=== PATIENT | female | born 1960 | race Hispanic/Latino ===

== ENCOUNTER 2018-08-09 19:13 | Emergency (ER) | payer MEDICARE, OTHER ==
[2018-08-09] MEDS ORDERED: Albuterol-Ipratrop 3 mg / 0.5 (3 ml) UD ONE ×3 (19:34→19:52)
--- NOTE | 2018-08-09 19:53 | C.PDOC ---
History Of Present Illness 57 year old female, whose PMHx includes COPD, presents to the ED for evaluation of shortness of breath which has been worsening over the past week. Patient also reports cough that is productive of yellow/green sputum. Patient notes she has been very stressed due to family problems and has been smoking more than usual. She denies fever, chills, nausea, vomiting. Time Seen by Provider: 08/09/18 19:38 Chief Complaint (Nursing): Shortness Of Breath History Per: Patient History/Exam Limitations: no limitations Onset/Duration Of Symptoms: Days Current Symptoms Are (Timing): Still Present Current Respiratory Medications: See Home Med List Associated Symptoms: Productive Cough Additional History Per: Patient Past Medical History Reviewed: Historical Data, Nursing Documentation, Vital Signs Vital Signs: Last Vital Signs Temp 99.1 F 08/09/18 19:33 Pulse 102 H 08/09/18 19:33 Resp 24 08/09/18 19:33 BP 124/81 08/09/18 19:33 Pulse Ox 97 08/09/18 19:33 - Medical History PMH: Arthritis, Asthma, COPD, HTN, Hypothyroidism Surgical History: No Surg Hx Family History: States: Unknown Family Hx - Social History Hx Alcohol Use: No Hx Substance Use: No - Immunization History Hx Tetanus Toxoid Vaccination: No Hx Influenza Vaccination: No Review Of Systems Constitutional: Negative for: Fever, Chills Respiratory: Positive for: Cough, Shortness of Breath, Sputum (yellow/green ) Gastrointestinal: Negative for: Nausea, Vomiting Physical Exam - Physical Exam Appears: Non-toxic, No Acute Distress, Other (anxious, argumentative ) Skin: Normal Color, Warm, Dry Head: Atraumatic, Normacephalic Eye(s): bilateral: Normal Inspection Oral Mucosa: Moist Neck: Supple Chest: Symmetrical, No Deformity, No Tenderness Cardiovascular: Rhythm Regular, No Murmur Respiratory: Wheezing (expiratory ), Other (bronchial congestion, retractions noted ) Extremity: Normal ROM, Capillary Refill (less than 2 seconds ) Neurological/Psych: Oriented x3, Normal Speech, Normal Cognition ED Course And Treatment O2 Sat by Pulse Oximetry: 97 (on RA) Pulse Ox Interpretation: Normal Progress - Re-Evaluation Re-evaluation Note: 08/09/18 22:18 FEELS BETTER NARD VSS - Data Reviewed Data Reviewed: Lab, Diagnostic imaging, Old records - Critical Care Citical Care: Excluding Proc Time Critical Care Time: 90 minutes Medical Decision Making Medical Decision Making: CXR ordered and reviewed. Duoneb INH, Xanax PO, Zithromax PO, and Prednisone PO given. Patient is argumentative and refuses to listen to recommended course of treatment. Patient refuses to focus on every problem but her trouble with breathing. Patient refuses IV access. Patient voices understanding of the possibility that her symptoms may worsen because of her choice to refuse IV access. Disposition Counseled Patient/Family Regarding: Studies Performed, Diagnosis, Need For Followup, Rx Given - Disposition Referrals: Sedrick Soni MD [Primary Care Provider] - Disposition: HOME/ ROUTINE Disposition Time: 22:19 Condition: IMPROVED Additional Instructions: YOU HAVE BEEN OFFERED BLOOD TESTING AND IV MEDICATION FOR YOUR CONDITION BUT HAVE REPEATEDLY REFUSED. FOLLOW UP WITH YOUR PMD Prescriptions: Azithromycin 1 tab PO DAILY #4 tab predniSONE [Prednisone] 60 mg PO DAILY #12 tab Instructions: Exacerbation of COPD (DC), Acute Bronchitis, Adult (DC) Forms: [employer] ([place]) - Clinical Impression Clinical Impression: COPD exacerbation, Bronchitis - Scribe Statement The provider has reviewed the documentation as recorded by the Scribe (Bren Soni) Provider Attestation: All medical record entries made by the Scribe were at my direction and personally dictated by me. I have reviewed the chart and agree that the record accurately reflects my personal performance of the history, physical exam, medical decision making, and the department course for this patient. I have also personally directed, reviewed, and agree with the discharge instructions and disposition.
[2018-08-09] MEDS: Albuterol-Ipratrop 3 mg / 0.5 (3 ml) UD IH SCH ×2 (20:06→20:36)
[2018-08-09 21:53] VITALS: TEMP 98.6
[2018-08-09 22:20] VITALS: O2SAT 97
[2018-08-09 22:34] VITALS: BP 122/78; PULSE 99; RESP 24
--- NOTE | 2018-08-10 13:50 | RAD ---
Date of service: 08/09/2018 PROCEDURE: CHEST RADIOGRAPH, 1 VIEW HISTORY: SOB COMPARISON: None available. FINDINGS: LUNGS: Note that the medial lung apices are partially obscured by overlying mandible and facial soft tissue artifact.. Minor bibasilar atelectasis left greater than right. PLEURA: No pneumothorax or pleural fluid seen. CARDIOVASCULAR: Normal. OSSEOUS STRUCTURES: No significant abnormalities. VISUALIZED UPPER ABDOMEN: Normal. OTHER FINDINGS: None. IMPRESSION: Slightly limited study as above.. Minor bibasilar atelectasis left greater than right
--- NOTE | 2018-08-12 08:01 | CARD ---
APPROVED REPORT Date of service: 08/09/2018 EKG Measurement Heart [id number] <Conclusion> Normal sinus rhythm Normal ECG
== END 2018-08-09 22:30 | disposition home or self-care (01) ==
LOC: C.ER 19:13 → SUPCPDRO 19:13 → C.ER 22:30
DX: J44.1 Chronic obstructive pulmonary disease with (acute) exacerbation (principal); F17.210 Nicotine dependence, cigarettes, uncomplicated